=== PATIENT | female | born 1935 | race African-American/Black ===

== ENCOUNTER 2018-03-22 17:43 | Observation (INO) | payer MEDICARE, MEDICAID ==
[2018-03-22 18:46] LABS: #Basophils 0.1 thou/uL (0.0-0.2); #Eosinphils 0.2 thou/uL (0.0-0.7); #Lymphocytes 2.5 thou/uL (1.20-3.40); #Monocytes 0.5 thou/uL (0.11-0.59); #Neutrophils 3.9 thou/uL (1.40-6.50); %Basophils 0.8 % (0.0-1.0); %Eosinophils 2.2 % (0.0-10.0); %Lymphocytes 35.2 % (21.0-51.0); %Monocytes 6.9 % (0.0-10.0); %Neutrophils 54.9 % (42.0-75.0); Hemoglobin 10.6 g/dL (12.0-16.0); Mean Corpuscular HGB CONC 34.3 g/dL (32.0-36.0); Mean Corpuscular Hemoglobin 30.8 pg (27.0-31.0); Mean Corpuscular Volume 89.7 fL (78.0-98.0); Mean Platelet Volume 8.7 fL (7.4-10.4); Platelet Count 195 thou/uL (130-400); RBC Distribution Width 12.9 % (11.5-14.5); Red Blood Cell (RBC) Count 3.44 mill/uL (4.20-5.40); White Blood Cell (WBC) Count 7.1 thou/uL (4.8-10.8)
--- NOTE | 2018-03-22 18:54 | RAD ---
PORTABLE CHEST: 03/22/18 HISTORY: Chest pain. COMPARISON: 06/06/15. Numerous calcified granuloma are again seen in both lung baneg[place]. These are stable. No evidence of inf iltrate or vascular congestion. Heart size is upper normal and stable. IMPRESSION: No acute process. POS: AGW
[2018-03-22 19:09] LABS: ALT (SGPT) 12 U/L (8-55); AST (SGOT) 23 U/L (5-34); Albumin 3.8 g/dL (3.4-4.8); Alkaline Phosphatase 94 U/L (40-150); Anion Gap 13 mmol/L (10-20); BUN (Urea Nitrogen) 38 mg/dL (9.8-20.1); Bilirubin, Total 0.5 mg/dL (0.2-1.2); Calc. Creatinine Clearance 0 mL/min (70-130); Calcium 9.5 mg/dL (7.8-10.44); Carbon Dioxide 22 mmol/L (23-31); Chloride 105 mmol/L (98-107); Estimated GFR-MDRD 32; Globulin 3.7 g/dL (2.4-3.5); Glucose 127 mg/dL (83-110); Potassium 4.1 mmol/L (3.5-5.1); Protein, Total 7.5 g/dL (6.0-8.3); Sodium 136 mmol/L (136-145)
[2018-03-22 19:12] LABS: CKMB 0.7 ng/mL (0-6.6); Troponin I 0.088 ng/mL (< 0.028)
[2018-03-22] MEDS ORDERED: Acetaminophen 325 MG TAB PO PRN (21:20)
[2018-03-22] MEDS ORDERED: Ondansetron ODT 4 MG TAB PO PRN (21:20)
[2018-03-22] MEDS ORDERED: HumaLOG 300 UNITS/3 ML VIAL SC PRN ×2 (21:27)
[2018-03-22] MEDS ORDERED: Dextrose 5% in Water 1,000 ML IV PRN (21:27)
[2018-03-22] MEDS ORDERED: Dextrose 50% Abboject 50 ML SYRINGE SLOW IVP PRN (21:27)
[2018-03-22] MEDS ORDERED: Enoxaparin Sodium 30 MG/0.3 ML SYRINGE SC SCH (21:30)
[2018-03-22 21:59] LABS: CKMB 0.7 ng/mL (0-6.6); Troponin I 0.084 ng/mL (< 0.028)
[2018-03-22] MEDS: Nitroglycerin 0.4 MG TAB (25 Tab Bottle) ONE ×3 (22:27→22:40)
--- NOTE | 2018-03-22 23:18 | PDOC.EVN ---
Attending Addendum - Attending Addendum Date/Time: 03/22/18 1037 I personally evaluated the patient and discussed the management with Dr. Sanches I agree with the History, Examination, Assessment and Plan documented please refer to admission HX/PE with any addition or exceptions noted below. 82 yo AAF with known CAD with c/o chest pain today after becoming upset with AC going out in her apartment and exposure to elevated temperature. Patient to ER via EMS found with elevated blood pressure indeterminate troponin and occ PVC noted on EKG without acute ischemic changes. Patient to be admittted r/o ACS.
[2018-03-22 23:25] VITALS: BMI 30.7
[2018-03-22] MEDS ORDERED: hydrALAZINE 20 MG/ML VIAL SLOW IVP PRN (23:35)
[2018-03-23] MEDS ORDERED: Nitroglycerin 0.4 MG TAB (25 Tab Bottle) SL PRN (00:23)
[2018-03-23] MEDS ORDERED: Gabapentin 300 MG CAP PO SCH ×3 (00:30→21:00)
[2018-03-23] MEDS ORDERED: traZODone HCl 50 MG TAB PO SCH ×3 (00:30→21:00)
[2018-03-23 01:36] LABS: Troponin I 0.081 ng/mL (< 0.028)
[2018-03-23] MEDS ORDERED: Melatonin 3 MG TAB PO PRN (01:43)
[2018-03-23] MEDS ORDERED: Carvedilol 25 MG TAB PO SCH ×2 (01:45→09:00)
[2018-03-23] MEDS ORDERED: cloNIDine 0.1 MG TAB PO SCH (03:30)
[2018-03-23] MEDS ORDERED: hydrALAZINE 20 MG/ML VIAL SLOW IVP PRN (03:30)
[2018-03-23] MEDS ORDERED: Labetalol HCl 100 MG/20 ML VIAL SLOW IVP PRN (03:31)
[2018-03-23 03:38] LABS: Band 8 % (5-11); Eosinophils 2 % (0-10); Lymphocytes 40 % (21-51); MDiff Complete? YES; Mean Corpuscular HGB CONC 33.9 g/dL (32.0-36.0); Mean Corpuscular Hemoglobin 30.2 pg (27.0-31.0); Mean Corpuscular Volume 88.9 fL (78.0-98.0); Mean Platelet Volume 8.5 fL (7.4-10.4); Monocytes 2 % (0-10); Neutrophil 48 % (42-75); PLT Morphology Comment Appears Adequate; Platelet Count 177 thou/uL (130-400); RBC Distribution Width 12.9 % (11.5-14.5); Red Blood Cell (RBC) Count 3.32 mill/uL (4.20-5.40); White Blood Cell (WBC) Count 5.2 thou/uL (4.8-10.8)
[2018-03-23 03:49] LABS: CKMB 0.5 ng/mL (0-6.6); Troponin I 0.077 ng/mL (< 0.028)
--- NOTE | 2018-03-23 03:58 | HP-2 ---
DATE OF ADMISSION: 03/22/2018 TIME OF ADMISSION: 2043 hours. CODE STATUS: DNR. PRIMARY CARE PHYSICIAN: Dr. Anisa Scott. ATTENDING: Dr. Jaylen Becker. HISTORIAN: Patient. CHIEF COMPLAINT: Chest pain. HISTORY OF PRESENT ILLNESS: This is an 82-year-old female who complains about chest tightness starting at 11:00 a.m. on day of admission. She stated that her AC broke down and she called her landlord to have it fixed, but they were not able to fix immediately. She was very anxious and unhappy with the service and she reported her tightness of chest started at that time, it continued until approximately 3 p.m. when she called for EMS. She stated that her chest pain resolved when she was on the ambulance, she was not able to identify if it was relieved with nitro, however. She was transported to the ER where she continued to be pain free, though she did note that when she felt anxious, she would have tightness in her chest. She says compared to her previous episodes of chest pain requiring cardiac intervention, this time her discomfort felt different. In the ER, she received a baby aspirin. PAST MEDICAL HISTORY: 1. Gout. 2. CAD. 3. Diabetes type 2. 4. Hyperlipidemia. 5. Hypertension. 6. Osteoarthritis. 7. Fibromyalgia. PAST SURGICAL HISTORY: 1. Hysterectomy. 2. Angioplasty. 3. Stent placement. 4. History of breast cancer, status post mastectomy. SOCIAL HISTORY: Denies alcohol use, drug use, or smoking history. ALLERGIES: Endorses: 1. LISINOPRIL, causing her to have a cough. 2. PENICILLIN. FAMILY HISTORY: Endorses a family history of [place] in her father, mother, brother , and sister. REVIEW OF SYSTEMS: General: Denies fever, chills, or night sweats. Eyes: Denies any vision change or eye pain. ENT: Denies nasal congestion or rhinorrhea. Respiratory: Denies cough or congestion. Endorses shortness of breath at times. Cardiovascular: Endorses chest tightness. Denies palpitations. Gastrointestinal: Denies nausea, vomiting, or diarrhea. Genitourinary: Denies dysuria. Skin: Denies rash or lesion. Musculoskeletal: Denies acute pain or tenderness. Does endorse chronic osteoarthritis. Neurologic: Denies weakness or numbness. Psychiatric: Endorses anxiety and depression. PHYSICAL EXAMINATION: VITAL SIGNS: Blood pressure 126/80, pulse 73, respirations 20, temperature 98.7 , O2 99% on room air. GENERAL: Alert, oriented x3, not in acute distress, obese, and appropriately interactive. EYES: PERRLA. Conjunctivae within normal limits. ENT: Nasal mucosa within normal limits. Oropharynx within normal limits. NECK: Supple without lymphadenopathy. CARDIOVASCULAR: Regular rate and rhythm without any obvious murmurs. RESPIRATORY: Normal effort without retractions. Clear to auscultation bilaterally. SKIN: Warm and dry without cyanosis. ABDOMEN: Soft, not tender to palpation. Bowel sounds heard throughout. EXTREMITIES: No clubbing or cyanosis. MUSCULOSKELETAL: Structure within normal limits. Muscle strength 5/5. NEUROLOGICAL: No focal deficits seen. Cranial nerves II through XII grossly intact. GCS 15. PSYCHIATRIC: Appropriate. LABORATORY DATA: 1. WBC 7.1, hemoglobin 10.6, platelet 195,000. 2. Sodium 136, chloride 105, potassium 4.1, bicarbonate 22, BUN 38, creatinine 1.85, glucose 127, calcium 9.5. 3. AST 22, ALT 12, alkaline phosphatase 94. 4. Troponin 0.088, creatinine 0.7. IMAGIN. Chest x-ray: No acute changes. 2. EKG: PVC was seen every 1. 3 beats, mildly prolonged QT 436/512. ASSESSMENT AND PLAN: 1. Atypical chest pain. The patient's history is atypical for acute coronary artery syndrome; however, she does have a heart score of 7 primarily due to her previous history. She will plan for admission to telemetry. We will follow up with her troponin and based on her trend in her troponin and her current clinical symptoms may consult Cardiology for further workup. 2. Acute kidney injury. Creatinine is mildly elevated above baseline. At this time, the patient will be encouraged to increase fluid intake may be secondary to her recent AC breakdown leading to dehydration. 3. Normocytic anemia, it is actually above her baseline at this time. We will continue to monitor this. 4. Diabetes type 2. We will continue her home medication, 20 units of Lantus at night and on mild sliding scale insulin. 5. Anxiety. We will continue her fluoxetine. 6. Hyperlipidemia. We will continue atorvastatin. 7. History of coronary artery disease. We will continue to monitor her clinical course while she is here and continue her Coreg, aspirin, and atorvastatin. We will continue her Plavix as well due to her previous history of stents placement. 8. Gout. Under control, not symptomatikc. 9. HTN. Continue home medication 10. Osteoarthritis. Not symptomatic at this time. Manage symptomatically. DISPOSITION: To telemetry. LENGTH OF HOSPITAL STAY: Currently obs at this time, anticipate less then 2 days. History and physical exam as well as management have been discussed with Dr. Becker who agrees. GORDON
[2018-03-23 03:59] LABS: ALT (SGPT) 10 U/L (8-55); AST (SGOT) 18 U/L (5-34); Albumin 3.5 g/dL (3.4-4.8); Alkaline Phosphatase 89 U/L (40-150); Anion Gap 12 mmol/L (10-20); BUN (Urea Nitrogen) 35 mg/dL (9.8-20.1); Bilirubin, Total 0.5 mg/dL (0.2-1.2); Calc. Creatinine Clearance 33 mL/min (70-130); Calcium 9.1 mg/dL (7.8-10.44); Carbon Dioxide 23 mmol/L (23-31); Chloride 105 mmol/L (98-107); Estimated GFR-MDRD 34; Globulin 3.3 g/dL (2.4-3.5); Glucose 254 mg/dL (83-110); Potassium 3.8 mmol/L (3.5-5.1); Protein, Total 6.8 g/dL (6.0-8.3); Sodium 136 mmol/L (136-145)
[2018-03-23] MEDS ORDERED: Sodium Chloride 0.9% 500 ML IV SCH (07:45)
--- NOTE | 2018-03-23 08:01 | PDOC.FM ---
Addendum entered and electronically signed by Damien Tellez MD 03/23/18 11:14 : Additional problem. SÁNCHEZ on CKD. Given NS 500 mL bolus. will f/u with PCP. Original Note: - Subjective Subjective: CC: none offered. HPI: Patient states her chest pain has resolved. Discussed options for treating CAD. In 2014, she had mild to moderate 3V dz and per note was poor candidate for PCI and CABG. Patient states she does not want CABG and is agreeable to medical management. Spoke with patient's PCP this morning who agreed with patient's plan. - Objective MAR Reviewed: Yes Vital Signs & Weight: Vital Signs (12 hours) Temp Pulse Resp BP BP Pulse Ox 03/23/18 04:17 113/63 03/23/18 03:27 188/92 H 03/23/18 03:15 97.8 F 93 16 188/92 H 96 03/23/18 01:50 198/108 H 03/23/18 01:10 85 185/92 H 03/23/18 01:05 82 221/99 H 03/23/18 00:16 73 03/22/18 23:29 98.1 F 73 18 203/91 H 97 03/22/18 22:40 174/91 H 03/22/18 22:34 184/99 H 03/22/18 22:27 211/108 H 03/22/18 22:05 98.2 F 75 16 205/115 H 99 Weight Weight 83.642 kg I&O: 03/22/18 03/23/18 03/24/18 06:59 06:59 06:59 Intake Total 120 Output Total 400 Balance -280 Result Diagrams: 03/23/18 03:16 03/23/18 03:16 EKG Reviewed by me: Yes (NSR. normal EKG ) Radiology Reviewed by me: Yes (CXR clear ) <Damien Tellez - Last Filed: 03/23/18 09:53> - Objective Vital Signs & Weight: Vital Signs (12 hours) Temp Pulse Resp BP BP Pulse Ox 03/23/18 11:12 98.0 F 69 20 111/68 94 L 03/23/18 08:23 98.3 F 84 20 03/23/18 07:28 98.3 F 84 20 141/82 H 97 07/01/18 04:17 113/63 03/23/18 03:27 188/92 H 03/23/18 03:15 97.8 F 93 16 188/92 H 96 03/23/18 01:50 198/108 H 03/23/18 01:10 85 185/92 H 03/23/18 01:05 82 221/99 H 03/23/18 00:16 73 Weight Weight 83.642 kg I&O: 03/22/18 03/23/18 03/24/18 06:59 06:59 06:59 Intake Total 120 890 Output Total 400 200 Balance -280 690 Result Diagrams: 03/23/18 03:16 03/23/18 03:16 <Jaylen Becker - Last Filed: 03/23/18 12:18> Phys Exam - Physical Examination Constitutional: NAD HEENT: moist MMs, sclera anicteric Respiratory: no wheezing, clear to auscultation bilateral Cardiovascular: RRR, no significant murmur Gastrointestinal: soft, non-tender Musculoskeletal: no edema Neurological: non-focal, moves all 4 limbs Psychiatric: normal affect, A&O x 3 Skin: no rash, cap refill <2 seconds <Damien Tellez - Last Filed: 03/23/18 09:53> Dx/Plan (1) Chest pain syndrome Code(s): R07.9 - CHEST PAIN, UNSPECIFIED Status: Acute Plan: Chest pain has resolved. Trop and EKG WNL. Patient states she would like provider or nursing staff to call her landlord to check on the status of her AC so she does not become upset again. Will attempt to call and check on status. If AC is still broken, will consult CM to see if they could find temporary housing for her. - anticipate D/C today. (2) CAD (coronary artery disease) Code(s): I25.10 - ATHSCL HEART DISEASE OF [place] CORONARY ARTERY W/O ANG PCTRS Status: Acute QualifierTitle: Coronary Disease-Associated Artery/Lesion type: [place] artery [place] vs. transplanted heart: [place] heart Associated angina: angina presence unspecified Qualified Code(s): I25.10 - Atherosclerotic heart disease of [place] coronary artery without angina pectoris Plan: Does not want aggressive measures taken. F/U outpatient cardiology. (3) HTN (hypertension) Code(s): I10 - ESSENTIAL (PRIMARY) HYPERTENSION Status: Acute QualifierTitle: Hypertension type: essential hypertension Qualified Code( s): I10 - Essential (primary) hypertension Plan: home meds. (4) HLD (hyperlipidemia) Code(s): E78.5 - HYPERLIPIDEMIA, UNSPECIFIED Status: Acute QualifierTitle: Hyperlipidemia type: unspecified Qualified Code(s): E78.5 - Hyperlipidemia, unspecified Plan: home meds. (5) Diabetes mellitus Code(s): E11.9 - TYPE 2 DIABETES MELLITUS WITHOUT COMPLICATIONS Status: Acute QualifierTitle: Diabetes mellitus type: type 2 Diabetes mellitus half-way insulin use: unspecified extermination inspector insulin use status Diabetes mellitus complication status: with unspecified complications Qualified Code(s): E11.8 - Type 2 diabetes mellitus with unspecified complications Plan: home meds. <Damien Tellez - Last Filed: 03/23/18 09:53> Attending Addendum - Attending Addendum Date/Time: 03/23/18 1216 I personally evaluated the patient and discussed the management with Dr. Tellez I agree with the History, Examination, Assessment and Plan documented above with any addition or exceptions noted below. Mild SÁNCHEZ will be given small fluid bolus . Discussed wishes with patient and she desires no aggressive intervention she has ruled out for ACS and can be dismissed home with climate controlled environment as her AC was out at home and temperatures approached 100 degrees. <Jaylen Becker - Last Filed: 03/23/18 12:18>
[2018-03-23] MEDS ORDERED: FLUoxetine HCl 20 MG CAP PO SCH ×2 (09:00)
[2018-03-23] MEDS ORDERED: Aspirin 81 mg Enteric Coated Tablet PO SCH (09:00)
[2018-03-23] MEDS ORDERED: Atorvastatin Calcium 40 MG TAB PO SCH ×2 (09:00)
[2018-03-23] MEDS ORDERED: Prevnar 13-Val Conj/PF 0.5 ML SYRINGE IM ONE (09:00)
[2018-03-23] MEDS ORDERED: Clopidogrel Bisulfate 75 MG TAB PO SCH ×2 (09:00)
[2018-03-23 11:38] VITALS: BP 111/68; TEMP 98
[2018-03-23] MEDS ORDERED: Insulin Glargine 20 UNITS in Pre-Filled Syringe 1 EACH SC SCH (21:00)
[2018-03-23] MEDS ORDERED: Vancomycin HCl 1.75 GM in Sodium Chloride 0.9% 500 ML IVPB SCH (21:00)
[2018-03-23] MEDS ORDERED: Non-Formulary Item 1 EACH (Levemir Flexpen [Levemir Flexpen] 20 UNIT) SC SCH (21:00)
--- NOTE | 2018-03-23 23:52 | DIS-2 ---
DATE OF ADMISSION: 03/22/2018 DATE OF DISCHARGE: 03/23/2018 RESIDENT: Damien Tellez M.D. ADMITTING ATTENDING: Geronimo Becker MD DISCHARGE ATTENDING: Geronimo Becker MD CONSULTATIONS: None. PROCEDURES: None. IMAGING: Chest x-ray 03/22/2018, revealed no acute processes. PERTINENT LABORATORY FINDINGS: Troponin at time of admission 0.088 trended down to 0.077. Creatinin e at the time of admission 1.85 trended down to 1.71 with well hydration. CK-MB at the time of admis harleen 0.7 trended down to 0.5. ADMITTING DIAGNOSES: 1. Atypical chest pain, rule out acute coronary syndrome. 2. Acute kidney injury, on chronic kidney disease stage 3. SECONDARY DIAGNOSES: 1. Coronary artery disease with known 3-vessel involvement. 2. Anxiety. 3. Hypertension. 4. Hyperlipidemia. 5. Hypertension. 6. Osteoarthritis. DISCHARGE MEDICATIONS: 1. Tylenol 650 mg q.4 hours p.r.n. 2. Nitroglycerin sublingual 0.4 mg every 5 minutes p.r.n. chest pain. 3. Aspirin 81 mg daily. 4. Plavix 75 mg daily. 5. Prozac 20 mg daily. 6. Gabapentin 600 mg at bedtime. 7. Imdur 300 mg daily. 8. Trazodone 50 mg at bedtime. 9. Coreg 25 mg daily. 10. Levemir 20 units subcutaneous at bedtime. 11. Lipitor 40 mg daily. DISCONTINUED MEDICATIONS: None. HISTORY OF PRESENT ILLNESS AND HOSPITAL COURSE: Ms. Menendez is a pleasant 82-year-old [facility] woman with a past medical history of hypertension, hyperlipidemia, insulin-dependent diabetes billie litus type 2 and known coronary artery disease. She presented to the ER with a chief complaint of ch est tightness began approximately 1100 hours on day of admission. She stated that her [place] [employer] unit quit working in her apartment on the day of admission and when her landlord informed her that it would not be able to be fixed immediately, she became very anxious and unhappy. She stated that her chest pain started at this time. Per EMS report, the patient's apartment was well over 100 degre es by the time they arrived to bring her to the hospital. The patient was given nitroglycerin in the ambulance, which resolved her chest pain. She was pain free in the ER, but stated that her chest ti ghtness would return when she felt anxious. She was admitted for ACS rule out and admitted under obs ervation status. Overnight, she required 3 rounds of sublingual nitroglycerin to control chest pain when it returned. However, on the morning of discharge, she was noted be pain free. Her blood press ure was also initially elevated overnight. However, this resolved with restarting her home medicatio ns and administration of nitroglycerin. Troponins were trended down. Serial EKGs were unremarkable. Initial EKG showed nonspecific ST changes. Final EKG was within normal limits and showed a mild pr olongation of her QTC interval. A long discussion was had with the patient on day 2 of admission regarding cardiovascular interventio ns. Review of records at [facility] from 2014 revealed that she had significa nt 3-vessel disease which her rubber tester felt would be best treated medically. Patient was asked a t this time if the primary team felt that it was truly an acute coronary event if she would desire ca rdiac catheterization or a subsequent CABG. She stated she did not want any invasive procedures perf ormed at this time and would prefer to be medically managed. Additionally, the patient's primary car e provider was contacted prior to discharge and stated that this plan was in agreement with what the patient had previously wished. In addition to the ACS rule out, patient had a mild acute kidney injury on top of her chronic kidney disease. Her creatinine trended down with oral hydration alone. However, given that the patient was likely to go home today and may not consume an adequate amount of fluids, a small 500 mL bolus dahlia l saline was given prior to discharge. Her kidney function can be followed up on an outpatient basis . Prior to discharge, the patient requested that the primary team contact her landlord to discuss the s tatus of her air condition. I spoke with the patient's outside property agent who stated that while her [facility] air conditioner unit would not be fixed until Saturday, the apartment complex had placed two w indow air conditioning units in her apartment one in the kitchen and one in the bedroom. This plan w as discussed with the patient who was agreeable to discharge. Vital signs at time of discharge were stable. DISPOSITION: She was discharged in stable condition. However, given the extent of her coronary ivan ry disease in 2015, her long-term prognosis is likely poor given her advanced age. At this time, the patient desires to be managed medically. DISCHARGE INSTRUCTIONS: 1. Location: Home. 2. Diet: Heart healthy, consistent carbohydrate. 3. Activity: As tolerated. 4. Patient's primary care provider was contacted on the day of discharge and we will assist the destiny ent on arranging outpatient followup. It is recommended that she follow up with Dr. Scott within 1 week for repeat basic metabolic panel to monitor kidney function. Less than 30 minutes spent on discharge.
--- NOTE | 2018-03-29 15:09 | EKG ---
Test Reason : Blood Pressure : / mmHG Vent. Rate : 083 BPM Atrial Rate : 083 BPM P-R Int : 170 ms QRS Dur : 104 ms QT Int : 436 ms P-R-T Axes : 065 057 028 degrees QTc Int : 512 ms Sinus rhythm with frequent Premature ventricular complexes Possible Left atrial enlargement Cannot rule out Anterior infarct , age undetermined Prolonged QT Abnormal ECG Confirmed by CHRISTIANO MURPHY D.O. ([id number]), map editor YI STEVEN ([id number]) on 03/29/2018 3:09:14 PM Referred By: Confirmed By:CHRISTIANO MURPHY D.O.
== END 2018-03-23 14:55 | disposition home or self-care (01) ==
LOC: ERS 17:43 → 2SW 20:36
PROVIDERS: ADMIT Family Medicine; ATTEND Family Medicine
DX: R07.89 Other chest pain (principal); N17.9 Acute kidney failure, unspecified; I12.9 Hypertensive chronic kidney disease with stage 1 through stage 4 chronic kidney disease, or unspecified chronic kidney disease; E11.22 Type 2 diabetes mellitus with diabetic chronic kidney disease; N18.3 Chronic kidney disease, stage 3 (moderate); D64.9 Anemia, unspecified; F41.9 Anxiety disorder, unspecified; E78.5 Hyperlipidemia, unspecified; I25.10 Atherosclerotic heart disease of native coronary artery without angina pectoris; M10.9 Gout, unspecified; M19.90 Unspecified osteoarthritis, unspecified site; M79.7 Fibromyalgia; Z88.0 Allergy status to penicillin; Z88.8 Allergy status to other drugs, medicaments and biological substances; Z95.5 Presence of coronary angioplasty implant and graft; Z79.02 Long term (current) use of antithrombotics/antiplatelets; Z79.82 Long term (current) use of aspirin; Z79.899 Other long term (current) drug therapy
CPT/HCPCS: 71045; 80053 ×2; 82553 ×3; 82962 ×2; 84484 ×4; 85007; 85025; 85027; 93005; 96374; 97139; 99285; G0378; 36415; 36416; 93010; A4216; J0360; J1650